=== PATIENT | male | born 1990 | race Caucasian/White ===

== ENCOUNTER 2025-05-21 13:54 | Emergency (ER) | payer OTHER ==
[~2025-05-21] VITALS: Ht 182.9 cm; Wt 86.2 kg
== END 2025-05-21 16:35 | disposition home or self-care (01) ==
LOC: ER 13:54 → EDBD 13:54 → ER 16:35
DX: S61.211A Laceration without foreign body of left index finger without damage to nail, initial encounter (principal); X58.XXXA Exposure to other specified factors, initial encounter
CPT/HCPCS: 12001; 99282-25